=== PATIENT | female | born 1955 | race Caucasian/White ===

== ENCOUNTER 2020-09-21 15:38 | Outpatient (REF) | payer MEDICARE, MEDICAID, SELFPAY ==
--- NOTE | ~2020-09-21 | MR_ITS ---
EXAMINATION: MR BRAIN WITHOUT CONTRAST CLINICAL INFORMATION: Headache. COMPARISON: None. TECHNIQUE: MRI of the brain was obtained using routine sequences without contrast. FINDINGS: No areas of abnormally restricted diffusion within the brain parenchyma to suggest acute or subacute ischemia. There are scattered foci of subcortical, periventricular and deep white matter T2 prolongation. No transcortical infarcts. No pathological magnetic susceptibility artifact is demonstrated is suggest intracranial blood products. There is no intracranial mass, mass effect, or shift of midline structures. No abnormal extra axial fluid collection. Ventricular system normal in size proportionate to the subarachnoid spaces, without evidence of hydrocephalus. Mild generalized brain parenchymal volume loss. Posterior fossa structures are normal. The craniocervical junction is normal. Midline structures including the posterior pituitary bright spot are normal. The intracranial vascular flow voids including the major dural venous sinuses are preserved. Mild mucosal thickening present throughout the ethmoid air cells. Remainder of the paranasal sinuses are clear. Small secretions present within the mastoid air cells. Orbits and globes unremarkable. MR/MR head/brain wo con IMPRESSION: * No acute or subacute intracranial pathology * Moderate white matter signal abnormalities are nonspecific. Statistically, these most often related to chronic microangiopathic gliosis. Demyelinating diseases, however can also have this appearance.
== END 2020-09-21 15:39 | disposition home or self-care (01) ==
LOC: HO.MRI 15:38
PROVIDERS: PCP Physician Assistant; Visit Provider Physician Assistant
DX: R51.9 Headache, unspecified (principal)
CPT/HCPCS: 70551

== ENCOUNTER → 2020-11-17 13:38 | Outpatient (REF) | payer MEDICARE, MEDICAID, SELFPAY ==
--- NOTE | 2020-11-17 14:00 | CA_ITS ---
Transthoracic Echocardiogram Patient (Last, First, Middle): Nadiya Shannon, Gender: Female Date of : 1955 Age: 65 Procedure Date: 11/17/2020 Procedure Type: Transthoracic Echocardiogram Location: OP Height: 157.48 cm Weight: 83.01 kg BSA: 1.84 m2 Heart Rate: bpm Door Hanger: POLY Belcher MD: Simon Nunez MD Symptoms: I48.0 PAF I10 HTN Study Quality: Good ECG Rhythm: Sinus Conclusions: - The left ventricular systolic function is normal. The visually estimated ejection fraction is between 65-70%. - No obvious valvular pathology seen on this study. Findings Left Ventricle Normal left ventricular cavity size. There is normal left ventricular wall thickness. The left ventricular systolic function is normal. The visually estimated ejection fraction is between 65-70%. There is no evidence of regional wall motion abnormalities. Diastolic function is normal for age. LV peak GLS -19.7%. Right Ventricle Normal right ventricular cavity size and systolic function. Atria Both atria are normal in size. Aortic Valve There is a normal trileaflet aortic valve. There is no aortic valve stenosis. There is trace (trivial) aortic valve regurgitation. Mitral Valve The mitral valve appears normal. There is mild mitral valve regurgitation. There is no mitral valve stenosis. Pulmonic Valve The pulmonic valve was not well visualized. Tricuspid Valve Normal tricuspid valve structure. There is mild tricuspid valve regurgitation. The pulmonary artery systolic pressure is normal. Great Vessels The aortic annulus, sinuses of valsalva, and asc aorta are normal in size. Venous The inferior vena cava is normal in size and collapses greater than 50% with inspiration. Pericardium/Pleural There is no evidence of pericardial effusion. Prior Study Comparison No significant change compared to prior study dated: 11/23/2016. Recommendations, Care & Conclusions No obvious valvular pathology seen on this study. Updated in Other Vendor System with Status of Final Simon Nunez MD electronically signed on 11/18/2020 11:51:52 AM with status of Final
== END ==
LOC: HO.CARD 13:38
PROVIDERS: Visit Provider Internal Medicine
DX: I48.0 Paroxysmal atrial fibrillation (principal); I10 Essential (primary) hypertension
CPT/HCPCS: 93306

== ENCOUNTER 2020-12-17 14:31 | Outpatient (REF) | payer MEDICARE, MEDICAID, SELFPAY ==
--- NOTE | ~2020-12-17 | MM_ITS ---
EXAMINATION: MM SCREENING DIGITAL BREAST TOMOSYNTHESIS, BILATERAL CLINICAL INFORMATION: Screening. Asymptomatic. The lifetime risk of breast cancer based on the Tyrer-Cuzick Model is 4%. COMPARISON: Mammography: 12/12/2019, 08/23/2018, 08/07/2017 TECHNIQUE: Digital breast tomosynthesis is performed in both the craniocaudal and mediolateral oblique views along with computer-aided detection (CAD). Synthesized 2D images are generated from the tomosynthesis. Additional left MLO view is provided. FINDINGS: The breasts are almost entirely fatty (ACR BI-RADS breast composition Category a). There are no significant masses, abnormal calcifications, or other abnormalities. Background stromal markings are stable. The axilla and skin contours are unremarkable. No significant changes. MM/MM tomosynthesis screening BI IMPRESSION: No mammographic evidence of malignancy. ASSESSMENT: BI-RADS 1: Negative RECOMMENDATION: Routine annual mammography screening. This patient's information was entered into a reminder system with a target due date for their next mammogram.
== END 2020-12-17 14:32 | disposition home or self-care (01) ==
LOC: HO.MAMMO 14:31
PROVIDERS: Visit Provider Physician Assistant
DX: Z12.31 Encounter for screening mammogram for malignant neoplasm of breast (principal)
CPT/HCPCS: 77063; 77067

== ENCOUNTER → 2021-01-05 14:36 | Outpatient (BNVA) | payer MEDICARE, MEDICAID, SELFPAY | PROVIDERS: PCP Physician Assistant; Referring Provider Physician Assistant; Visit Provider Internal Medicine | DX: I48.0 Paroxysmal atrial fibrillation (principal); I10 Essential (primary) hypertension; R00.1 Bradycardia, unspecified | CPT/HCPCS: 93005; 99212 ==

== ENCOUNTER 2021-04-26 08:26 | Outpatient (REF) | payer MEDICARE, MEDICAID, SELFPAY ==
[2021-04-26 08:39] LABS: MANUAL DIFF FLAG NO
[2021-04-26 09:06] LABS: Basophils Percent Auto 0.5 % (0-2); Eosinophils Absolute Auto 0.4 X10*3/uL (0.0-0.4); Eosinophils Percent Auto 5.4 % (0-4); Hematocrit 41.3 % (37.0-47.0); Hemoglobin 13.4 g/dl (12.0-16.0); Imm Gran Abs Auto 0.02 X10*3/uL (0.00-0.03); Imm Gran Pct Auto 0.3 % (0.0-0.4); Lymphocytes Absolute Auto 2.5 X10*3/uL (1.2-4.9); Lymphocytes Percent Auto 33.2 % (20-40); Mean Corpuscular HGB Conc 32.4 g/dl (31.0-35.0); Mean Corpuscular Hemoglobin 29.6 pg (27.0-33.0); Mean Corpuscular Volume 91.4 fL (80.0-98.0); Mean Platelet Volume 12.1 fL (9.4-12.3); Monocytes Absolute Auto 0.5 X10*3/uL (0.1-1.2); Monocytes Percent Auto 6.5 % (2-11); Neutrophils Absolute Auto 4.1 x10*3/uL (2.0-8.3); Neutrophils Percent Auto 54.1 % (45-73); Platelet Count 232 X10*3/uL (160-400); Red Blood Count 4.52 X10*6/uL (4.20-5.50); Red Cell Distribution Width 12.3 % (11.0-16.0); White Blood Count 7.6 X10*3/uL (4.8-10.8)
[2021-04-26 09:16] LABS: Estimated Average Glucose 103 mg/dL; Hemoglobin A1C 119.2775 umol/L; Hemoglobin A1c % 5.2 %
[2021-04-26 09:20] LABS: Creatinine Urine 208.18 mg/dL; Microalbum/Creatinine Ratio Ur 13.9 ug/mg cr
[2021-04-26 09:35] LABS: Alanine Aminotransferase 18 U/L (0-31); Alkaline Phosphatase 68 U/L (39-117); Anion Gap 11 (12-20); Aspartate Amino Transferase 14 U/L (5-31); Bilirubin Total 0.4 mg/dL (0.0-1.0); Blood Urea Nitrogen 16 mg/dL (9-16); Calcium 9.6 mg/dL (8.4-10.2); Carbon Dioxide 30 mmol/L (22-29); Chloride 104 mmol/L (96-108); Cholesterol 167 mg/dL; Estimated Glomerular Filt Rate 59; Glucose Fasting 99 mg/dL (60-99); HDL Cholesterol 52 mg/dL; LDL Cholesterol Calculated 97 mg/dl; Potassium 3.7 mmol/L (3.3-5.1); Sodium 141 mmol/L (135-145); Total Protein 6.6 g/dL (6.5-8.0); Triglycerides 92 mg/dL
[2021-04-26 09:57] LABS: TSH reflex Free T4 0.85 uIU/mL (0.32-4.0)
== END 2021-04-26 08:27 | disposition home or self-care (01) ==
LOC: HO.LAB 08:26
PROVIDERS: Visit Provider Physician Assistant
DX: I10 Essential (primary) hypertension (principal); I48.0 Paroxysmal atrial fibrillation; Z13.1 Encounter for screening for diabetes mellitus
CPT/HCPCS: 36415; 80053; 80061; 82043; 83036; 84443; 85025

== ENCOUNTER → 2021-07-06 14:37 | Outpatient (BNVA) | payer MEDICARE, MEDICAID, SELFPAY | PROVIDERS: PCP Physician Assistant; Referring Provider Physician Assistant; Visit Provider Internal Medicine | DX: I48.92 Unspecified atrial flutter (principal) | CPT/HCPCS: 93005 ==

== ENCOUNTER 2021-07-13 10:53 | Outpatient (REF) | payer MEDICARE, MEDICAID, SELFPAY ==
--- NOTE | ~2021-07-13 | XR_ITS ---
EXAMINATION: XR CERVICAL SPINE CLINICAL INFORMATION: Neck pain. COMPARISON: None TECHNIQUE: 3 views of the cervical spine were obtained. FINDINGS: There is mild straightening of cervical lordosis. The vertebral heights and alignment are normal. There is loss of C3-C4, C4-C5, C5-C6 and C6-C7 disc heights with mild ventral and posterior spondylosis. The craniovertebral junction and the C1-C2 alignment is normal. There is moderate facet joint arthropathy left C2-C3, C3-C4, and C4-C5 disc levels. No visible acute fracture or dislocation seen. The prevertebral soft tissues are normal. XR/XR cervical spine 3V IMPRESSION: Degenerative disc changes with ventral and posterior spondylosis C3-C4, C4-C5, C5-C6 and C6-C7 disc levels. Moderate left facet joint arthropathy C2-C3 through C4-C5 disc levels. No acute fracture or dislocation seen.
== END 2021-07-13 10:54 | disposition home or self-care (01) ==
LOC: HO.XRAY 10:53
PROVIDERS: PCP Physician Assistant; Visit Provider Physician Assistant
DX: M54.2 Cervicalgia (principal)
CPT/HCPCS: 72040

== ENCOUNTER → 2021-07-21 10:58 | Outpatient (BNVA) | payer MEDICARE, MEDICAID, SELFPAY | PROVIDERS: PCP Physician Assistant; Referring Provider Physician Assistant; Visit Provider Internal Medicine | DX: I48.91 Unspecified atrial fibrillation (principal); I10 Essential (primary) hypertension; R00.1 Bradycardia, unspecified | CPT/HCPCS: 93005; 99212 ==

== ENCOUNTER → 2021-08-23 12:30 | Outpatient (BNVA) | payer MEDICARE, MEDICAID, SELFPAY | PROVIDERS: PCP Physician Assistant; Referring Provider Physician Assistant; Visit Provider Internal Medicine | DX: Z13.89 Encounter for screening for other disorder (principal) | CPT/HCPCS: 93005 ==

== ENCOUNTER 2021-09-02 09:30 | Day surgery (SDC) | payer MEDICARE, MEDICAID, SELFPAY ==
[2021-08-30 10:41] VITALS: BMI 35.1
--- NOTE | 2021-09-01 09:09 | HO.ANESPROP2 ---
Documented by User: Lisbeth Carbone NP 09/01/21 09:12 HPI - Anesthesia Eval Consult details Narrative: 66yo F for Cardioversion xarelto for afib PMFSH Active Problems Active Problems: All Active Problems (Updated 08/30/21 @ 10:40 by Xiomara Rivera RN) HTN (hypertension) (Acute) Afib (Acute) Elevated LFTs (Acute) OBED (generalized anxiety disorder) (Acute) Demyelinating disease of central nervous system (Acute) PAF (paroxysmal atrial fibrillation) (Acute) Sinus bradycardia (Acute) Essential hypertension (Acute) Screening for diabetes mellitus (Acute) Adult general medical exam (Acute) Allergic rhinitis (Acute) Cervicalgia (Acute) Atrial fibrillation with rapid ventricular response (Acute) Past Medical History Medical History (Updated 08/30/21 @ 10:40 by Xiomara Rivera RN) Abnormal brain MRI Anxiety Atrial fibrillation COVID-19 vaccine series completed Demyelinating disease of central nervous system Frequent headaches HTN (hypertension) Family History Family History Father Lung cancer Mother Afib Brother Lung cancer Surgical History Surgical History History of cholecystectomy History of hysterectomy Social History Social History Housing: Apartment Alcohol intake: current Alcohol intake frequency: holidays/special occasions only Patient Tobacco Use Status: Former Tobacco user e-Cigarette/Vaping Use: Never Used Second Hand Smoke Exposure: No Use of substances other than those prescribed or required for medical reasons: No Are you DNR?: No Advance Directives: No Advance Directives Information Provided: Yes service: No Current occupational status: disabled Cognitive needs: No Hearing needs: No Vision needs: Yes Meds Allergies Allergy/AdvReac Type Severity Reaction Status Date / Time No Known Allergies Allergy Verified 08/23/21 12:51 Exam Exam Date and Time: September 01, 2021 0909 Height,Weight and Vital Signs: Height 5 ft 2 in Weight 87.09 kg Pertinent Lab Results Pertinent Lab Results: Laboratory Tests 04/26/21 04/26/21 08:38 08:38 WBC 7.6 Hgb 13.4 Hct 41.3 Plt Count 232 Sodium 141 Potassium 3.7 Chloride 104 Carbon Dioxide 30 H BUN 16 Creatinine 0.95 Narrative Narrative: EKG 08/2021 atrial fibrillation with rapid rate at 111/Min ECHO 11/2020 Conclusions: - The left ventricular systolic function is normal.? The visually estimated ejection fraction is between 65-70%. ? - No obvious valvular pathology seen on this study.? Assessment and Plan Assessment Anesthesia Assessment: Chart Reviewed Documented by User: Eugenia Hirsch MD 09/02/21 12:11 [facility] Past Medical History Medical History (Updated 08/30/21 @ 10:40 by Xiomara Rivera RN) Abnormal brain MRI Anxiety Atrial fibrillation COVID-19 vaccine series completed Demyelinating disease of central nervous system Frequent headaches HTN (hypertension) Family History Family History Father Lung cancer Mother Afib Brother Lung cancer Family history of problems with anesthesia: No Surgical History Surgical History History of cholecystectomy History of hysterectomy History of Problems with Anesthesia: No Social History Social History Housing: Apartment Alcohol intake: current Alcohol intake frequency: holidays/special occasions only Patient Tobacco Use Status: Former Tobacco user e-Cigarette/Vaping Use: Never Used Second Hand Smoke Exposure: No Use of substances other than those prescribed or required for medical reasons: No Are you DNR?: No Advance Directives: No Advance Directives Information Provided: Yes service: No Current occupational status: disabled Cognitive needs: No Hearing needs: No Vision needs: Yes Meds Allergies Allergy/AdvReac Type Severity Reaction Status Date / Time No Known Allergies Allergy Verified 08/23/21 12:51 Exam Height,Weight and Vital Signs: Height 5 ft 2 in Weight 87.09 kg Vital Signs Temp Pulse Resp BP Pulse Ox 97.3 F 144 H 18 153/103 H 97 09/02/21 09:53 09/02/21 09:53 09/02/21 09:53 09/02/21 09:53 09/02/21 09:53 Airway Mallampati Class: II TM Dist: >3cm Neck ROM: Full Denture: Upper Loose/Missing/Broken Teeth: Yes (No teeth bottom ) Heart: Irregularly irregular Lungs: CTAB Assessment and Plan Assessment Anesthesia Assessment: Anesthesia Plan Discussed Final Anesthetic Review Family History of Problems with Anesthesia: No History of Problems with Anesthesia: No NPO: Yes ASA Class: III Final Preanesthetic Review: No Changes in Pt Med Stat, Meds/Allgs Chart Reviewed, Consent Obtained/Reviewed and Anes Risks/Benef Reviewed Patient Risk: Intermediate Procedure Risk: Intermediate Assessment/Block/Sedation in SS: Assess/Block/Sedation-SS Anesthetic Plan Anesthetic Plan: GA Disposition: Standard PACU
[2021-09-02 09:53] VITALS: BP 153/103; PULSE 144; RESP 18; TEMP 36.3; O2SAT 97
[2021-09-02] MEDS: Lactated Ringers 1,000 ML 100 ML IVCONT (09:56)
--- NOTE | 2021-09-02 10:40 | MHC.SHP ---
Pre-Procedural Eval Section A Date of Service: 09/02/21 The patient is an INPATIENT: No Section B Chief Complaint: afib Details of Present Illness: Atrial fibrillation with rapid rate and symptomatic. Hence planned for cardioversion today. Relevant Family History (Specify if Yes): No Relevant Social History: None Present Medications: see Short Stay Collaborative assessment Medical History: No relevant PMH History of Previous Operations: No relevant previous surgery Allergies: Allergies Allergy/AdvReac Type Severity Reaction Status Date / Time No Known Allergies Allergy Verified 08/23/21 12:51 Review of Systems Review of Systems Comment: Cardiac- palpitations, dizziness, shortness of breath. No angina. No syncope. No leg swellling Constitutional- general sensation of being unwell Remained of 10 system review is -ve. Exam Surgical H&P Exam: Normal: HEENT, Normal: Lungs, Normal: Extremities, Normal: Abdomen, Normal: Skin and Normal: Neurological and Significant Findings: Heart (In atrial fibrillation with rapid rate; no murmurs, gallops or rubs) Exam Comment: apart from atrial fibrillation with rapid rate, otherwise unremarkable. Plan I have reviewed the history and physical and performed a pertinent physical examination on my patient. No changes have occurred unless specified.
--- NOTE | 2021-09-02 10:45 | P.PNCAR_ITS ---
Cardioversion Procedure Note Cardioversion Date of Procedure: 09/02/2021 Ordering Provider: Dr. Nunez Performing Provider: Dr. Nunez Indication for Procedure: Symptomatic atrial fibrillation Pre-Op Diagnosis: Atrial fibrillation with rapid rate Post-Op Diagnosis: Sinus rhythm History: See full H and P. Consent: Informed consent obtained. Procedure: After informed consent was obtained, patient was taken to the PACU. The patient was then positioned appropriately. The cardioversion pads were placed in ant eroposterior position. Once under anesthesia, 120 joules of synchronized shock was administered. The rhythm converted from atrial fibrillation to sinus rhythm. Patient remained in sinus rhythm after the end of procedure. Complications: None. Impression: Successful cardioversion from atrial fibrillation to sinus rhythm. Recommendations: Start flecainide 50 mg b.i.d.. Toprol-XL 25 mg daily. Was previously on Multaq but that was stopped several weeks ago.
--- NOTE | 2021-09-02 11:04 | ECG_ITS ---
Test Reason : post cardioversion Blood Pressure : / mmHG Vent. Rate : 061 BPM Atrial Rate : 061 BPM P-R Int : 150 ms QRS Dur : 096 ms QT Int : 462 ms P-R-T Axes : 049 005 023 degrees QTc Int : 465 ms Normal sinus rhythm Nonspecific ST abnormality Abnormal ECG When compared with ECG of 21-FEB-2018 14:00, Sinus rhythm has replaced Atrial fibrillation Vent. rate has decreased BY 30 BPM Referred By: Bushra Oconnor Electronically Signed By:BUSHRA OCONNOR
[2021-09-02 11:09] VITALS: BP 112/64; PULSE 63; RESP 25; TEMP 37.4; O2SAT 96
[2021-09-02 11:14] VITALS: BP 142/69; PULSE 59; RESP 17; O2SAT 96
[2021-09-02 11:19] VITALS: BP 107/73; PULSE 64; RESP 23; O2SAT 97
[2021-09-02 11:24] VITALS: BP 117/80; PULSE 56; RESP 16; O2SAT 99
[2021-09-02 11:39] VITALS: BP 116/71; PULSE 55; RESP 15; TEMP 37.1; O2SAT 96
[2021-09-02] MEDS: Flecainide Acetate 50 MG TABLET PO (11:59)
== END 2021-09-02 12:19 | disposition home or self-care (01) ==
PROVIDERS: PCP Physician Assistant; Visit Provider Internal Medicine
PROC: 5A2204Z Restoration of Cardiac Rhythm, Single (ICD-10-PCS; principal; 2021-09-02 11:00)
DX: I48.91 Unspecified atrial fibrillation (principal); R00.1 Bradycardia, unspecified; I10 Essential (primary) hypertension; R51.9 Headache, unspecified; Z79.899 Other long term (current) drug therapy
CPT/HCPCS: 92960; 93005

== ENCOUNTER → 2021-09-16 13:25 | Outpatient (BNVA) | payer MEDICARE, MEDICAID, SELFPAY | PROVIDERS: PCP Physician Assistant; Referring Provider Physician Assistant; Visit Provider Internal Medicine | DX: I48.91 Unspecified atrial fibrillation (principal); R00.1 Bradycardia, unspecified; I10 Essential (primary) hypertension; Z79.899 Other long term (current) drug therapy | CPT/HCPCS: 93005; 99212 ==

== ENCOUNTER 2021-09-17 11:32 | Day surgery (SDC) | payer MEDICARE, MEDICAID, SELFPAY ==
[2021-09-17] VITALS (8 sets, daily range): BP systolic 115–136; BP diastolic 60–80; PULSE 48–93; RESP 16; TEMP 36.6–37.1; O2SAT 94–99; BMI 33.8
--- NOTE | 2021-09-17 11:58 | MHC.SHP ---
Pre-Procedural Eval Section A Date of Service: 09/17/21 The patient is an INPATIENT: No Changes since office visit: Yes Patient answered all questions; No Cold of Flu in the past 2 weeks, No New Medical Problems and No Changes in Medication Section B Chief Complaint: a-fib Allergies: Allergies Allergy/AdvReac Type Severity Reaction Status Date / Time No Known Allergies Allergy Verified 09/16/21 13:32 Plan I have reviewed the history and physical and performed a pertinent physical examination on my patient. No changes have occurred unless specified.
[2021-09-17] MEDS: Lactated Ringers 1,000 ML 50 ML IVCONT (12:04)
--- NOTE | 2021-09-17 12:25 | P.CONAN_ITS ---
HPI - Anesthesia Eval Consult details Narrative: 66 yo female patient for cardioversion. Last cardioversion 09/02/21 [facility] Active Problems Active Problems: All Active Problems (Updated 08/30/21 @ 10:40 by Xiomara Rivera RN) HTN (hypertension) (Acute) Afib (Acute) Elevated LFTs (Acute) OBED (generalized anxiety disorder) (Acute) Demyelinating disease of central nervous system (Acute) PAF (paroxysmal atrial fibrillation) (Acute) Sinus bradycardia (Acute) Essential hypertension (Acute) Screening for diabetes mellitus (Acute) Adult general medical exam (Acute) Allergic rhinitis (Acute) Cervicalgia (Acute) Atrial fibrillation with rapid ventricular response (Acute) Past Medical History Medical History Abnormal brain MRI Anxiety Atrial fibrillation COVID-19 vaccine series completed Demyelinating disease of central nervous system Frequent headaches HTN (hypertension) Family History Family History Father Lung cancer Mother Afib Brother Lung cancer Family history of problems with anesthesia: No Surgical History Surgical History History of cholecystectomy History of hysterectomy History of Problems with Anesthesia: No Social History Social History Housing: Apartment Alcohol intake: current Alcohol intake frequency: holidays/special occasions only Patient Tobacco Use Status: Former Tobacco user Tobacco use type: Cigarette Smoked in Last 30 Days: No e-Cigarette/Vaping Use: Never Used Second Hand Smoke Exposure: No Use of substances other than those prescribed or required for medical reasons: No Are you DNR?: No Advance Directives: No Advance Directives Information Provided: Yes Recently lost weight without trying: No Nutrition Risks: No Nutritional Risk service: No Current occupational status: disabled Cognitive needs: No Hearing needs: No Vision needs: Yes Meds Allergies Allergy/AdvReac Type Severity Reaction Status Date / Time No Known Allergies Allergy Verified 09/16/21 13:32 Active Medications: Current Medications Lactated Ringer's (Lr) 1,000 mls @ 50 mls/hr IVCONT .Q20H CYNTHIA Exam Exam Date and Time: September 17, 2021 1225 Height,Weight and Vital Signs: Height 5 ft 2 in Weight 83.915 kg Last Vital Signs Temp 98.7 F 09/17/21 11:51 Pulse 93 09/17/21 11:51 Resp 16 09/17/21 11:51 BP 136/80 09/17/21 11:51 Pulse Ox 94 09/17/21 11:51 Airway Mallampati Class: II TM Dist: >3cm Neck ROM: Full Loose/Missing/Broken Teeth: Yes (Wears upper dentures. Not in. No teeth bottom) Heart: Irregularly irregular Lungs: CTAB Assessment and Plan Assessment Anesthesia Assessment: Anesthesia Plan Discussed and Chart Reviewed Final Anesthetic Review Family History of Problems with Anesthesia: No History of Problems with Anesthesia: No NPO: Yes ASA Class: III Final Preanesthetic Review: No Changes in Pt Med Stat, Meds/Allgs Chart Reviewed, Consent Obtained/Reviewed and Anes Risks/Benef Reviewed Patient Risk: Intermediate Procedure Risk: Intermediate Assessment/Block/Sedation in SS: Assess/Block/Sedation-SS Anesthetic Plan Anesthetic Plan: GA Disposition: Standard PACU
--- NOTE | 2021-09-17 12:38 | HO.ANESPROP2 ---
HPI - Anesthesia Eval Consult details Narrative: 66 yo female patient for cardioversion. Last cardioversion 09/02/21 [facility] Active Problems Active Problems: All Active Problems (Updated 08/30/21 @ 10:40 by Xiomara Rivera RN) HTN (hypertension) (Acute) Afib (Acute) Elevated LFTs (Acute) OBED (generalized anxiety disorder) (Acute) Demyelinating disease of central nervous system (Acute) PAF (paroxysmal atrial fibrillation) (Acute) Sinus bradycardia (Acute) Essential hypertension (Acute) Screening for diabetes mellitus (Acute) Adult general medical exam (Acute) Allergic rhinitis (Acute) Cervicalgia (Acute) Atrial fibrillation with rapid ventricular response (Acute) Past Medical History Medical History Abnormal brain MRI Anxiety Atrial fibrillation COVID-19 vaccine series completed Demyelinating disease of central nervous system Frequent headaches HTN (hypertension) Family History Family History Father Lung cancer Mother Afib Brother Lung cancer Family history of problems with anesthesia: No Surgical History Surgical History History of cholecystectomy History of hysterectomy History of Problems with Anesthesia: No Social History Social History Housing: Apartment Alcohol intake: current Alcohol intake frequency: holidays/special occasions only Patient Tobacco Use Status: Former Tobacco user Tobacco use type: Cigarette Smoked in Last 30 Days: No e-Cigarette/Vaping Use: Never Used Second Hand Smoke Exposure: No Use of substances other than those prescribed or required for medical reasons: No Are you DNR?: No Advance Directives: No Advance Directives Information Provided: Yes Recently lost weight without trying: No Nutrition Risks: No Nutritional Risk service: No Current occupational status: disabled Cognitive needs: No Hearing needs: No Vision needs: Yes Meds Allergies Allergy/AdvReac Type Severity Reaction Status Date / Time No Known Allergies Allergy Verified 09/16/21 13:32 Active Medications: Current Medications Lactated Ringer's (Lr) 1,000 mls @ 50 mls/hr IVCONT .Q20H CYNTHIA Exam Exam Date and Time: September 17, 2021 1238 Height,Weight and Vital Signs: Height 5 ft 2 in Weight 83.915 kg Last Vital Signs Temp 98.7 F 09/17/21 11:51 Pulse 93 09/17/21 11:51 Resp 16 09/17/21 11:51 BP 136/80 09/17/21 11:51 Pulse Ox 94 09/17/21 11:51 Airway Mallampati Class: II TM Dist: >3cm Neck ROM: Full Denture: Upper (Wears upper dentures. Not in) Loose/Missing/Broken Teeth: Yes (Upper dentures not in. No teeth bottom) Heart: Irregularly irregular Lungs: CTAB Assessment and Plan Assessment Anesthesia Assessment: Anesthesia Plan Discussed and Chart Reviewed Final Anesthetic Review Family History of Problems with Anesthesia: No History of Problems with Anesthesia: No NPO: Yes ASA Class: III Final Preanesthetic Review: No Changes in Pt Med Stat, Meds/Allgs Chart Reviewed, Consent Obtained/Reviewed and Anes Risks/Benef Reviewed Patient Risk: Intermediate Procedure Risk: Intermediate Assessment/Block/Sedation in SS: Assess/Block/Sedation-SS Anesthetic Plan Anesthetic Plan: GA Disposition: Standard PACU
--- NOTE | 2021-09-17 13:20 | ECG_ITS ---
Test Reason : POST CARDERVERSION Blood Pressure : / mmHG Vent. Rate : 052 BPM Atrial Rate : 052 BPM P-R Int : 172 ms QRS Dur : 098 ms QT Int : 502 ms P-R-T Axes : 065 012 038 degrees QTc Int : 466 ms Sinus bradycardia Nonspecific T wave abnormality Abnormal ECG When compared with ECG of 02-SEP-2021 11:11, Nonspecific T wave abnormality, worse in Anterior leads Referred By: Allan Camargo Electronically Signed By:ALLAN CAMARGO MD
--- NOTE | 2021-09-17 13:20 | HO.CARDIVERS ---
Cardioversion Procedure Note Cardioversion Date of Procedure: 09/17/2021 Ordering Provider: Dr. Nunez Performing Provider: Myself Indication for Procedure: Recurrent persistent atrial flutter/fibrillation with rapid ventricular rate Pre-Op Diagnosis: Same Post-Op Diagnosis: Sinus rhythm Performed with Transesophageal Echo: No History: See office note from yesterday Consent: Verbal and Written consent was obtained from the patient before starting the procedure and confirming oral anticoagulation use The patient was made aware of the risk of synchronized cardioversion including risk, benefits, alternatives 2nd opinion Procedure: After consent obtained, cardioversion pads were attached and the patient was sedated by the anesthesia team. Once adequate sedation achieved, patient was delivered 200 joules of biphasic synchronized energy in anteroposterior configuration Complications: None Impression: Successful conversion to sinus rhythm Recommendations: 1. 12 lead EKG 2. Will increase dose of flecainide 100 mg b.i.d., prescription will be sent 3. Follow-up visit with Dr. Nunez in the next few days 4. Continue Xarelto and metoprolol dose
== END 2021-09-17 14:30 | disposition home or self-care (01) ==
PROVIDERS: PCP Physician Assistant; Visit Provider Internal Medicine Cardiovascular Disease
PROC: 5A2204Z Restoration of Cardiac Rhythm, Single (ICD-10-PCS; principal; 2021-09-17 13:00)
DX: I48.91 Unspecified atrial fibrillation (principal); I48.92 Unspecified atrial flutter; I10 Essential (primary) hypertension; G37.9 Demyelinating disease of central nervous system, unspecified; F41.1 Generalized anxiety disorder; Z79.01 Long term (current) use of anticoagulants; Z79.899 Other long term (current) drug therapy; Z87.891 Personal history of nicotine dependence
CPT/HCPCS: 92960; 93005

== ENCOUNTER → 2021-09-21 13:56 | Outpatient (BNVA) | payer MEDICARE, MEDICAID, SELFPAY | PROVIDERS: PCP Physician Assistant; Referring Provider Physician Assistant; Visit Provider Internal Medicine | DX: I48.0 Paroxysmal atrial fibrillation (principal); I10 Essential (primary) hypertension; R00.1 Bradycardia, unspecified | CPT/HCPCS: 93005; 99212 ==

== ENCOUNTER → 2021-10-28 07:55 | Outpatient (REF) | payer MEDICARE, MEDICAID, SELFPAY ==
--- NOTE | ~2021-10-28 | NM_ITS ---
Myocardial perfusion study Indication: Atrial fibrillation to evaluate for myocardial ischemia Technique: The patient was brought in for a Lexiscan perfusion study on 10/28/2021. Patient performed low-level exercise and was injected 0.4 mg of Lexiscan intravenously. Within a minute of injection, 30 mCi of sestamibi was given intravenously. Images were obtained using the SPECT gamma camera interlaced with the gating device. Images were obtained in supine position. Resting perfusion study was performed on 11/01/2021. Patient was administered 30 mCi of sestamibi intravenously at rest. Images were then obtained in supine position. Images obtained with and without CT attenuation. Total DLP 98 mGy-cm Images were processed with the software and compared side to side in short axis, horizontal long axis and vertical long axis views. Findings: The stress perfusion study showed non attenuated images show minimally reduced uptake in the, septum and apex of the LV myocardium. Remainder of the LV myocardium is normally perfused. Attenuation corrected images show minimally septum and moderately reduced uptake in the apex of the LV myocardium.. The gated study shows normal LV systolic function with calculated LVEF of 62%. LV cavity is mildly dilated size. The gated study shows normal systolic wall thickening and contraction of segments. Resting study shows no change in perfusion compared to stress perfusion study. Gating at rest reveals normal systolic wall motion with ejection fraction at 65%. The findings are consistent with no clear reversible defect suggestive of ischemia. Likely normal myocardial perfusion. NM/NM cardiolite stress test Impression: 1. Myocardial perfusion imaging study shows normal myocardial perfusion 2. Gated LVEF is to% 3. Transient ischemic dilatation not present but LV cavity is dilated EKG nondiagnostic for ischemia
--- NOTE | 2021-10-28 08:00 | HM_ITS ---
Conclusion: 1. Patient was monitored for total period of 1 day and 23 hours 2. Baseline was normal sinus rhythm with average heart of 65 beats per minute 3. No significant pauses or bradycardia noted 4. Intermittent episodes of atrial fibrillation with longest episode lasting 2 hours and 59 minutes with a total burden of 6.5% with fastest heart rate of 163 beats per minute in atrial fibrillation 5. Total of 564 PACs accounting for 0.3% of total beats accounting for occasional PACs 6. No patient reported events MTDD
--- NOTE | 2021-10-28 08:00 | CA_ITS ---
Acquisition Time: 2021-10-28 08:16:00 Total Exercise Time: 00:02:00 Test Indications: Abnormal ECG AFIB Medications: BACLOFEN FLECAINIDE HCTZ LISINOPRIL METOPROLOL LORATADINE OMEPRAZOLE SERTRALINE XARELTO Protocol: LEXISCAN Max HR: 094 BPM 61% of Pred: 154 BPM Max BP: 158/078 mmHG Max Work Load: 1.6 METS Pharmacological stress test using Lexiscan while walking for 2 min. Pt tolerated well, denies any anginal sx. EKG with no arrhythmias, non-diagnostic for ischemia. Nuclear images to follow. Normotensive response to exercise. Test reviewed with Dr. Camargo. Referred By: Simon Nunez Overread By: Azul Chu NP
== END ==
LOC: HO.CARD 07:55
PROVIDERS: PCP Physician Assistant; Visit Provider Internal Medicine
DX: I48.91 Unspecified atrial fibrillation (principal)
CPT/HCPCS: 78452; 93017; 93242; A9500; J0280; J2785